=== PATIENT | female | born 1985 | race African-American/Black ===

== ENCOUNTER 2019-05-09 04:22 | Emergency (ER) | payer OTHER ==
[~2019-05-09] VITALS: Ht 152.4 cm; Wt 110.7 kg
[2019-05-09 04:30] VITALS: BP 176/98
[2019-05-09] MEDS ORDERED: HYDROCHLOROTH12.5 M2 ORAL (04:31)
[2019-05-09] MEDS ORDERED: AMLODIPINE BES2.5 MG ORAL (04:31)
--- NOTE | 2019-05-09 04:35 | NUR ---
ED Nurse Note: pt walked to ED C/O itchiness to whole body after eating a peach around 0200. pt is alert x4. VSS Addendum: 05/09/19 at 0511 by YE ED Nurse Note: pt walked to ED C/O itchiness to whole body after eating a peach around 0200. prior to coming to ER, pt was working on floor at [employer] [place] [facility] [place] pt is alert x4. VSS
[2019-05-09] MEDS ORDERED: DiphenhydrAMINE 25mg/10ml Elixir ORAL ONE (04:45)
[2019-05-09] MEDS ORDERED: BENADRYL25 MG ORAL (05:06)
[2019-05-09] MEDS ORDERED: PREDNISONE20 MG ORAL (05:06)
[2019-05-09 05:12] VITALS: BP 144/84
--- NOTE | 2019-05-09 05:12 | NUR ---
ER DISCHARGE NOTE: Patient is cleared to be discharged per ERMD, pt is aox4, on room air, with stable vital signs. pt was given dc and prescription instructions, pt was able to verbalize understanding, pt id band removed without complications. pt is able to ambulate with steady gait. pt took all belongings and went back to work [place] [employer] [place]
--- NOTE | 2019-05-16 19:41 | Emergency Room Report ---
History of Present Illness General Chief Complaint: Allergic Reaction Source: Patient Present Illness HPI Patient is a 34-year-old female presented after increased generalized itchiness. Patient reports having increased problems with itching to her trunk and extremities. She states this began about 2:00 while at work. She reports having ingested some fruit which may have precipitated this. She denies prior history of allergic reactions. She denies any shortness of breath. Patient reports having increased generalized itchiness. She denies any tongue swelling. Allergies: Coded Allergies: METOCLOPRAMIDE (Verified Allergy, Unknown, 05/09/19) Patient History Past Medical History: see triage record Last Menstrual Period: 05/08/19 Now: No Reviewed Nursing Documentation: PMH: Agreed; PSxH: Agreed Nursing Documentation-PMH Past Medical History: No History, Except For Hx Hypertension: Yes Review of Systems All Other Systems: negative except mentioned in HPI Physical Exam General Appearance: alert, GCS 15, obese Head: normocephalic Eyes: bilateral eye normal inspection ENT: normal ENT inspection, normal pharynx, no angioedema, normal voice Respiratory: lungs clear, normal breath sounds Cardiovascular #1: no edema Gastrointestinal: normal inspection Musculoskeletal: normal inspection Neurologic: normal inspection, alert, oriented x3, responsive Skin: rash - Generalized urticarial Medical Decision Making Diagnostic Impression: Primary Impression: Allergic reaction ER Course Patient presented for increased itchiness. Differential diagnosis include was not limited to allergic reaction, scabies, insect bites among others. Patient has a benign exam and does not appear to require any further imaging or laboratory testing at this time urine test was negative. Patient was given Benadryl in the emergency department. She is noted to have some improvement. Patient was given medications for symptomatic treatment. She was advised to return if worse. Patient's skin rash appears to be likely related to a food allergy however she may need further testing. Labs Test 05/09/19 04:40 Urine HCG, Qualitative Negative (NEGATIVE) Status: improved Disposition: HOME, SELF-CARE Condition: Stable Scripts Prednisone* (PREDNISONE*) 20 Mg Tablet 40 MG ORAL DAILY, #10 TAB Prov: Olman Chase MD 05/09/19 Diphenhydramine Hcl* (BENADRYL*) 25 Mg Capsule 25 MG ORAL Q6H PRN for Itching, #30 CAP Prov: Olman Chase MD 05/09/19 Referrals: [facility]ERR[facility] (PCP) Patient Instructions: Abigail, [id number] Olman Chase MD May 16, 2019 19:41
== END 2019-05-09 05:12 | disposition home or self-care (01) ==
LOC: EMR 04:49
DX: T78.40XA Allergy, unspecified, initial encounter (principal); X58.XXXA Exposure to other specified factors, initial encounter; Z88.8 Allergy status to other drugs, medicaments and biological substances; I10 Essential (primary) hypertension; E66.9 Obesity, unspecified; Z68.42 Body mass index [BMI] 45.0-49.9, adult
CPT/HCPCS: 81025; 99283

== ENCOUNTER 2019-08-22 08:59 | Emergency (ER) | payer OTHER ==
[~2019-08-22] VITALS: Ht 152.4 cm; Wt 107.5 kg
[~2019-08-22 08:59] MED LIST: AMLODIPINE BES2.5 MG ORAL; BENADRYL25 MG ORAL; HYDROCHLOROTH12.5 M2 ORAL; PREDNISONE20 MG ORAL
[2019-08-22 09:12] VITALS: BP 204/116
--- NOTE | 2019-08-22 09:12 | NUR ---
ED Nurse Note: Pt aaox4, no acute distress with elevated BP. Pt arrived form hospital floor via wheelchair. Pt c/o dizzyness, nauseous, and "feeling like water has filled up her ears." while at work. Pt denies any fall, no skin issues noted. Pt on wellness manager and EKG completed. MD at bedside.
--- NOTE | 2019-08-22 09:36 | Emergency Room Report ---
History of Present Illness General Chief Complaint: Hypertension Source: Patient Present Illness HPI Patient presents with complaints of palpitation and elevated blood pressure Patient was upstairs on the floor At the time she was asked to come to the ER for bedside sitter duties Patient started having palpitations sensation blood pressure was taken and was significantly elevated Patient denies any chest pain denies any shortness of breath denies any headache She does report history of hypertension denies any focal weakness denies any visual changes Allergies: Coded Allergies: METOCLOPRAMIDE (Verified Allergy, Unknown, 05/09/19) Patient History Past Medical History: see triage record Last Menstrual Period: on period Reviewed Nursing Documentation: PMH: Agreed; PSxH: Agreed Nursing Documentation-PMH Past Medical History: No History, Except For Hx Hypertension: Yes Review of Systems All Other Systems: negative except mentioned in HPI Physical Exam Vital Signs Date Time Temp Pulse Resp B/P (MAP) Pulse Ox O2 Delivery O2 Flow Rate FiO2 08/22/19 09:11 98.1 107 24 194/101 (132) 100 Room Air Sp02 EP Interpretation: reviewed, normal General Appearance: mild distress - Appears concerned Head: normocephalic, atraumatic Eyes: bilateral eye PERRL, bilateral eye EOMI ENT: hearing grossly normal, normal pharynx, TMs + canals normal, uvula midline Neck: full range of motion, supple, no meningismus, no bony tend Respiratory: lungs clear, normal breath sounds, no rhonchi, no respiratory distress, no retraction, no accessory muscle use Cardiovascular #1: normal peripheral pulses, regular rate, rhythm, no edema, no gallop, no JVD, no murmur Gastrointestinal: normal bowel sounds, non tender, soft, no mass, no organomegaly, non-distended, no guarding, no hernia, no pulsatile mass, no rebound Genitourinary: no CVA tenderness Musculoskeletal: normal inspection Neurologic: motor strength/tone normal, engineering manager III-XII nml as tested, oriented x3 , sensory intact, responsive Psychiatric: mood/affect normal Skin: no rash Lymphatic: normal inspection, no adenopathy Medical Decision Making Diagnostic Impression: Primary Impression: Hypertension Additional Impression: Palpitation ER Course Patient is a fairly complex patient with multiple differential to consideration including but not limited to cardiac cardiopulmonary and vascular emergencies Patient's blood pressure has started to significantly improve at bedside Later in the work-up patient also complained of some palpitations sensation And there was a component of midsternal chest pain as well Given this and her initial tachycardia CT angios was performed to evaluate for pulmonary embolism it was read as negative Patient has clinically improved significantly She will have monitoring of her blood pressure twice a day for the next several days follow-up with primary physician for any possible need for change in medications Labs Test 08/22/19 09:21 08/22/19 09:35 Urine Color Pale yellow Urine Appearance Clear Urine pH 7 (4.5-8.0) Urine Specific Belcher 1.010 (1.005-1.035) Urine Protein 2+ (NEGATIVE) Urine Glucose (UA) Negative (NEGATIVE) Urine Ketones Negative (NEGATIVE) Urine Blood 5+ (NEGATIVE) Urine Nitrite Positive (NEGATIVE) Urine Bilirubin Negative (NEGATIVE) Urine Urobilinogen Normal MG/DL (0.0-1.0) Urine Leukocyte Esterase Negative (NEGATIVE) Urine RBC 5-10 /HPF (0 - 2) Urine WBC 0-2 /HPF (0 - 2) Urine Squamous Epithelial Cells Occasional /LPF Urine Bacteria Moderate /HPF (NONE) Urine HCG, Qualitative Negative (NEGATIVE) Urine Opiates Screen Negative (NEGATIVE) Urine Barbiturates Screen Negative (NEGATIVE) Phencyclidine (PCP) Screen Negative (NEGATIVE) Urine Amphetamines Screen Negative (NEGATIVE) Urine Benzodiazepines Screen Negative (NEGATIVE) Urine Cocaine Screen Negative (NEGATIVE) Urine Marijuana (THC) Screen Negative (NEGATIVE) White Blood Count 11.4 K/UL (4.8-10.8) Red Blood Count 5.70 M/UL (4.20-5.40) Hemoglobin 12.2 G/DL (12.0-16.0) Hematocrit 38.4 % (37.0-47.0) Mean Corpuscular Volume 67 FL (80-99) Mean Corpuscular Hemoglobin 21.4 PG (27.0-31.0) Mean Corpuscular Hemoglobin Concent 31.7 G/DL (32.0-36.0) Red Cell Distribution Width 15.3 % (11.6-14.8) Platelet Count 326 K/UL (150-450) Mean Platelet Volume 6.6 FL (6.5-10.1) Neutrophils (%) (Auto) 55.4 % (45.0-75.0) Lymphocytes (%) (Auto) 37.0 % (20.0-45.0) Monocytes (%) (Auto) 4.7 % (1.0-10.0) Eosinophils (%) (Auto) 2.0 % (0.0-3.0) Basophils (%) (Auto) 0.9 % (0.0-2.0) Sodium Level 141 MMOL/L (136-145) Potassium Level 3.5 MMOL/L (3.5-5.1) Chloride Level 106 MMOL/L (98-107) Carbon Dioxide Level 30 MMOL/L (21-32) Anion Gap 6 mmol/L (5-15) Blood Urea Nitrogen 10 mg/dL (7-18) Creatinine 0.9 MG/DL (0.55-1.30) Estimat Glomerular Filtration Rate > 60 mL/min (>60) Glucose Level 93 MG/DL (74-106) Calcium Level 8.6 MG/DL (8.5-10.1) Total Bilirubin 0.2 MG/DL (0.2-1.0) Aspartate Amino Transf (AST/SGOT) 22 U/L (15-37) Alanine Aminotransferase (ALT/SGPT) 35 U/L (12-78) Alkaline Phosphatase 88 U/L (46-116) Total Creatine Kinase 234 U/L (26-308) Troponin I 0.000 ng/mL (0.000-0.056) Total Protein 8.2 G/DL (6.4-8.2) Albumin 3.6 G/DL (3.4-5.0) Globulin 4.6 g/dL Albumin/Globulin Ratio 0.8 (1.0-2.7) Lipase 92 U/L (73-393) EKG Diagnostic Results Rate: tachycardiac Rhythm: other ST Segments: other - Nonspecific ST and T wave changes Rhythm Strip Diag. Results EP Interpretation: yes Rate: 80 Rhythm: NSR, no PVC's, no ectopy Chest X-Ray Diagnostic Results Chest X-Ray Diagnostic Results : Chest X-Ray Ordered: Yes # of Views/Limited/Complete: 1 View Indication: Chest Pain EP Interpretation: Yes Interpretation: no consolidation, no effusion, no pneumothorax Impression: No acute disease Electronically Signed by: Anamaria Garner, CT/MRI/US Diagnostic Results CT/MRI/US Diagnostic Results : Impression CT chestImpression: No definite evidence of acute pulmonary embolus Borderline cardiomegaly Evidence of old granulomatous disease in the left lung Last Vital Signs Date Time Temp Pulse Resp B/P (MAP) Pulse Ox O2 Delivery O2 Flow Rate FiO2 08/22/19 09:25 204/116 08/22/19 09:11 98.1 107 24 100 Room Air Status: improved Disposition: HOME, SELF-CARE Condition: Improved Additional Instructions: Patient is provided with the discharge instructions notified to follow up with primary doctor in the next 2-3 days otherwise return to the er with any worsening symptoms. Please note that this report is being documented using [email or web address] technology. This can lead to erroneous entry secondary to incorrect interpretation by the dictating instrument. Anamaria Garner DO Aug 22, 2019 09:36
--- NOTE | 2019-08-22 09:42 | NUR ---
ED Nurse Note: Urine and blood sent to lab. X-ray completed.
[2019-08-22 09:47] VITALS: BP 159/83
[2019-08-22 09:49] LABS: APPEARANCE,URINE CLEAR; BILIRUBIN, URINE NEGATIVE (NEGATIVE); COLOR,URINE PALE YELLOW; GLUCOSE, URINE (UA) NEGATIVE (NEGATIVE); KETONES,URINE NEGATIVE (NEGATIVE); LEUKOCYTE ESTERASE ,URINE NEGATIVE (NEGATIVE); NITRITE,URINE POSITIVE (NEGATIVE); PH,URINE 7 (4.5-8.0); PROTEIN,URINE 2+ (NEGATIVE); UROBILINOGEN,URINE NORMAL MG/DL (0.0-1.0)
[2019-08-22 09:51] LABS: BASOPHILS % (AUTO) 0.9 % (0.0-2.0); HEMATOCRIT 38.4 % (37.0-47.0); HEMOGLOBIN 12.2 G/DL (12.0-16.0); MEAN CORPUSCULAR VOLUME 67 FL (80-99); MONOCYTES % (AUTO) 4.7 % (1.0-10.0); NEUTROPHILS % (AUTO) 55.4 % (45.0-75.0); PLATELET COUNT 326 K/UL (150-450); RED CELL DISTRIBUTION WIDTH 15.3 % (11.6-14.8); WHITE BLOOD COUNT 11.4 K/UL (4.8-10.8)
--- NOTE | 2019-08-22 09:56 | Diagnostic Imaging Report ---
Indication: Chest pain Technique: One view of the chest Comparison: Findings: Lungs and pleural spaces are clear. Heart size is normal Impression: No acute process
--- NOTE | 2019-08-22 10:05 | NUR ---
ED Nurse Note: Pt mother contacted at . Mother received message.
--- NOTE | 2019-08-22 10:06 | NUR ---
ED Nurse Note: Pt Mother name is Ector
[2019-08-22 10:13] LABS: ANION GAP 6 mmol/L (5-15); BLOOD UREA NITROGEN 10 mg/dL (7-18); CALCIUM 8.6 MG/DL (8.5-10.1); CARBON DIOXIDE 30 MMOL/L (21-32); CHLORIDE 106 MMOL/L (98-107); CREATININE 0.9 MG/DL (0.55-1.30); POTASSIUM 3.5 MMOL/L (3.5-5.1); SODIUM 141 MMOL/L (136-145)
[2019-08-22 10:14] VITALS: BP 145/75
[2019-08-22 10:18] LABS: ALANINE AMINOTRANSFERASE 35 U/L (12-78); ALBUMIN 3.6 G/DL (3.4-5.0); ALBUMIN/GLOBULIN RATIO 0.8 (1.0-2.7); ALKALINE PHOSPHATASE 88 U/L (46-116); ASPARTATE AMINO TRANSFERASE 22 U/L (15-37); BILIRUBIN,TOTAL 0.2 MG/DL (0.2-1.0); CREATINE KINASE 234 U/L (26-308)
[2019-08-22] MEDS ORDERED: Ketorolac 30mg Inj IV ONE (10:30)
[2019-08-22] MEDS ORDERED: Omnipaue 350mg/ml 100ml vial INJ PRN (10:30)
--- NOTE | 2019-08-22 10:51 | NUR ---
ED Nurse Note: Pt with sterile processing technician
--- NOTE | 2019-08-22 12:10 | Diagnostic Imaging Report ---
ndication: Chest pain Technique: IV administration nonionic contrast. Spiral acquisitions obtained from the lung bases to the lung apices. Multiplanar and 3-D reconstructions were generated. Total dose length product 953 mGycm. CTDIvol(s) 94, 41, 21 mGy. Dose reduction achieved using automated exposure control Comparison: none Findings: Pulmonary arterial opacification is barely adequate, probably due to body habitus. No definite intraluminal filling defects or other findings to suggest acute pulmonary embolus demonstrated. Normal caliber pulmonary arteries. No evidence of right ventricular dilatation. There is borderline generalized cardiomegaly. Normal caliber thoracic aorta without evidence of aneurysm or dissection. The included proximal abdominal visceral vessels appear unremarkable. There is a calcified nodule in the left lower lobe. Lungs and pleural spaces are otherwise clear. No infiltrates, effusions, masses, or congestion. No pericardial effusion. No mediastinal or hilar mass or adenopathy. No axillary or chest wall mass or adenopathy. The included upper abdominal viscera are unremarkable Impression: No definite evidence of acute pulmonary embolus Borderline cardiomegaly Evidence of old granulomatous disease in the left lung The CT scanner at [facility] is accredited by the [employer] and the scans are performed using protocols designed to limit radiation exposure to as low as reasonably achievable to attain images of sufficient resolution adequate for diagnostic evaluation.
[2019-08-22] MEDS ORDERED: Labetalol 5mg/ml 20ml vial IV ONE (12:15)
--- NOTE | 2019-08-22 12:42 | NUR ---
ER DISCHARGE NOTE: Patient is cleared to be discharged per ERMD, pt is aox4, on room air, with stable vital signs. pt was given dc and prescription instructions, pt was able to verbalize understanding, pt id band and iv site removed without complications. pt is able to ambulate with steady gait. pt took all belongings. Pt states pain is 0/10.
[2019-08-22 12:43] VITALS: BP 139/78
== END 2019-08-22 12:43 ==
LOC: EMR 09:48
DX: I10 Essential (primary) hypertension (principal); R00.2 Palpitations; Z88.8 Allergy status to other drugs, medicaments and biological substances; R00.0 Tachycardia, unspecified; R07.9 Chest pain, unspecified
CPT/HCPCS: 36415; 71045; 71275; 80053; 80307; 81003; 81025; 82550; 83690; 84484; 85025; 87086; 93005; 96374; 96375; J0360; J1885; Q9967; Z7502; 99284